=== PATIENT | female | born 1995 | race American Indian/Alaskan Native ===

== ENCOUNTER 2021-07-16 11:26 | Emergency (ER) | payer BC ==
[2021-07-16 15:53] LABS: Basophils # (Auto) 0.1 K/mm3 (0.0-0.1); Basophils % (Auto) 1.1 % (0.0-1.8); Eosinophils # (Auto) 0.1 K/mm3 (0.0-0.4); Eosinophils % (Auto) 1.4 % (0.0-4.3); Hematocrit 43.6 % (30.3-42.9); Hemoglobin 14.2 gm/dl (10.1-14.3); Lymphocytes # (Auto) 2.4 K/mm3 (1.2-5.4); Lymphocytes % (Auto) 32.3 % (13.4-35.0); Mean Corpuscular HGB Conc 33 % (30-34); Mean Corpuscular Volume 91 fl (79-97); Monocytes # (Auto) 0.4 K/mm3 (0.0-0.8); Monocytes % (Auto) 4.9 % (0.0-7.3); Platelet Count 244 K/mm3 (140-440); Red Blood Count 4.77 M/mm3 (3.65-5.03)
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
[2021-07-16 16:14] LABS: Blood Urea Nitrogen 12 mg/dL (7-17); Calcium 9.4 mg/dL (8.4-10.2); Hemolysis Index 6
[2021-07-16 16:20] LABS: BUN/Creatinine Ratio 20
[2021-07-16] MEDS ORDERED: ACETAMINOPHEN 325 MG TAB PO ONE (16:54)
[2021-07-16] MEDS ORDERED: LORazepam 2 MG TAB PO PRN ×2 (18:39)
[2021-07-17 01:20] LABS: Amphetamine Screen,Urine PRESUMPTIVE NEGATIVE; Benzodiazepines Screen,Urine PRESUMPTIVE NEGATIVE; Cannabinoid Screen,Urine PRESUMPTIVE POSITIVE; Cocaine Screen,Urine PRESUMPTIVE NEGATIVE; Methadone Screen,Urine PRESUMPTIVE NEGATIVE; Opiate Screen,Urine PRESUMPTIVE NEGATIVE
[2021-07-17 01:31] LABS: Bacteria,Urine 1+ /HPF (Negative); Bilirubin,Urine NEG (Negative); Blood,Urine NEG (Negative); Color,Urine Yellow (Yellow); Mucus,Urine FEW /HPF; Urobilinogen,Urine < 2.0 mg/dL (<2.0)
[2021-07-17 10:27] VITALS: BP 122/91
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
--- NOTE | 2021-07-17 11:54 | Event Note ---
Date: 07/17/21 Patient has been evaluated by our psychiatric team. Patient denies any suicidal homicidal ideation. No visual or auditory hallucination. Psychiatric team recommended patient to be discharged and follow-up as an outpatient. Patient is medically and psychiatrically stable for discharge.
== END 2021-07-17 12:25 | disposition home or self-care (01) ==
LOC: ED 11:26
DX: F32.9 Major depressive disorder, single episode, unspecified (principal); R45.851 Suicidal ideations; F10.229 Alcohol dependence with intoxication, unspecified
CPT/HCPCS: 36415; 80048; 80307; 80320; 81001; 84703; 85025; 99284; G0480